=== PATIENT | female | born 2000 | race Caucasian/White ===

== ENCOUNTER 2019-03-26 20:13 | Outpatient (REF) | payer BC, SELFPAY ==
[2019-03-26 19:34] LABS: ALT 22 U/L (14-59); AST 15 U/L (15-37); Albumin 4.2 g/dL (3.4-5.0); Alkaline Phosphatase 62 U/L (46-116); BUN 11 mg/dL (7-18); Bilirubin, Total 0.4 mg/dL (0.2-1.0); CREATININE 0.59 mg/dL (0.55-1.02); Calcium 9.5 mg/dL (8.5-10.1); Chloride 103 mmol/L (98-107); Glucose 85 mg/dL (70-100); Potassium 4.2 mmol/L (3.5-5.1); Sodium 141 mmol/L (136-145); TSH (W/Ref FT4) 1.27 uIU/mL (0.52-4.13); Total Protein 7.7 g/dL (6.4-8.2)
== END 2019-03-26 20:33 ==
LOC: NCHCN 20:13
PROVIDERS: PCP Nurse Practitioner Adult Health; Visit Provider Nurse Practitioner Adult Health
DX: F41.9 Anxiety disorder, unspecified (principal); R35.0 Frequency of micturition
CPT/HCPCS: 80053; 84443

== ENCOUNTER 2019-03-27 19:12 | Outpatient (REF) | payer BC, SELFPAY | END 2019-03-27 19:32 | LOC: LBN 19:12 | PROVIDERS: PCP Nurse Practitioner Adult Health; Visit Provider Nurse Practitioner Adult Health | DX: R35.0 Frequency of micturition (principal); R39.15 Urgency of urination; R82.81 Pyuria | CPT/HCPCS: 87086 ==

== ENCOUNTER 2021-05-01 02:19 | Outpatient (CLI) | payer MEDICAID, SELFPAY ==
--- OUTSIDE RECORDS SUMMARY | 2021-05-01 02:21 | XMS_ITS ---
:2000 Author Care Team Providers Name Role Phone DORITA BENOIT Primary Care Provider [phone] Allergies Code Code System Name Reaction Severity Status Onset NKDA ? Medications Name Status Start Date Stop Date ? ? amitriptyline 10 mg tablet Completed ? 11/16 takes one tablet by mouth daily at bedtime. Camrese 0.15 mg-30 mcg (84)/10 mcg(7) Completed ? 01/27/2018 tablets,3 month dose pack clotrimazole-betamethasone 1 %-0.05 % Completed ? 01/27/2018 topical cream cyclobenzaprine 5 mg tablet Completed ? 07/2019 famotidine 20 mg tablet Completed ? 01/12/20 20 Take 1 tablet twice a day by oral route as needed for 90 days. fluconazole 150 mg tablet Completed ? 2017 levonorgestrel-ethinyl estradiol 90 mcg-20 mcg (28) tablet Compl eted ? 04/10/2018 Take 1 tablet every day by oral route. medroxyprogesterone 150 mg/mL Completed ? intramuscular suspension Miralax 17 gram/dose oral powder Completed ? 06/04/2019 Take 17 g every day by oral route. oxybutynin chloride 5 mg tablet Completed ? 11/17/2019 as needed oxycodone 5 mg tablet Completed ? 01/27/2018 phenazopyridine 200 mg tablet Completed ? Active ? Not available ProAir HFA 90 mcg/actuation aerosol inhaler Completed ? 01/12/2020 Inhale 2 puffs every 4-6 hours by inhalation route. sertraline 50 mg tablet Completed ? 01/12/20 20 Take 1 tablet every day by oral route for 30 days. sulfamethoxazole 800 mg-trimethoprim Completed ? 01/27/2018 160 mg tablet triamcinolone acetonide 0.1 % topical cream Completed ? 01/23/2019 APPLY A THIN LAYER TO THE AFFECTED AREA(S) BY TOPICAL ROUTE 2 T IMES PER DAY Problems Name Status Onset Date Source ? Venereal Disease Screening Unknown 03/12/2018 ? Chronic Neck Pain Unknown 06/04/2019 ? Thoracic Back Pain Unknown 06/04/2019 ? Adult Health Examination Unknown 05/04/2020 ? Sebaceous Cyst of Skin Active 04/07/2021 ? History of Chlamydial Infection Unknown ? ? History of Asthma Active ? ? Well Child Unknown ? History Initial Prescription of Oral Unknown ? His tory Contraception Venereal Disease Screening Unknown ? Histo ry Leticia Infection of Genital Region Unknown ? History SNOMED CT Concept Unknown ? History Procedure by Method Unknown ? History Procedures Date Name Performed by ? 03/03/2017 [place] Teeth Extraction Information not available 04/10/2018 US, Pelvis, Transabdominal + [facility] Radiology (Internal) Transvaginal [address] [place] [address] ( (Work Place) 06/04/2019 XR, Cervical Spine, 4 or 5 View [facility] Radiology (Internal) [address] [place] [address] ( (Work Place) 06/04/2019 XR, Thoracic Spine, [address] [facility] Radiology (Internal) [address] [place] [address] ( (Work Place) 03/27/2021 US, Extremity, Nonvascular, [facility] Rad[facility] (Internal[facility] [address] [place] [address] (Work Place) Results Lab Results Date Name Specimen Result Interpretation Description Value Range Status Address ? 03/27/2021 CBC W/ Auto BLD ? Wbc 8.2 10*3/uL 5.0-10.0 F inal [place] Diff 10*3/uL [facility] ab (Internal) : [address] ? ? BLD ? Rbc 4.68 10*6/uL 4.10-5.30 Final N orth 10*6/uL [facility] (Internal) : [address] ? ? BLD ? Hgb 13.9 g/dL 12.0-16.0 Final Nort h g/dL [facility] (Internal) : [address] ? ? BLD ? Hct 42.6 % 37.0-47.[address] [facility] L ab (Internal) : [address] ? ? BLD ? Mcv 91.0 fL 80.0-96.0 Final [facility] Hospital L ab (Internal) : [address] ? ? BLD ? Mch 29.7 pg 26.0-32.0 Final [facility] Hospital L ab (Internal) : [address] ? ? BLD ? Mchc 32.6 g/dL 31.0-35.0 Final [facility] h g/dL [facility] L ab (Internal) : [address] ? ? BLD ? Rdw 12.0 % 11.5-14.5 Final [facility] L ab (Internal) : [address] ? ? BLD ? Plt 232 10*3/uL 130-450 Final Nort h 10*3/uL [facility] L ab (Internal) : [address] ? ? BLD ? Anc 5.19 10*3/uL ? Final [facility] L ab (Internal) : [address] ? ? BLD ? Nlr 2.14 0.00-3.[address] [facility] L ab (Internal) : [address] ? ? BLD ? Neutro 63.2 % 40.0-75.0 Final [facility] L ab (Internal) : [address] ? ? BLD ? Lymph 29.5 % 20.0-50.0 Final [facility] L ab (Internal) : [address] ? ? BLD ? Delta 6.0 % 2.0-10.0 Final [facility] L ab (Internal) : [address] ? ? BLD Low Eos 0.5 % 1.0-6.0 % Final [facility] L ab (Internal) : [address] ? ? BLD ? Baso 0.6 % 0.0-1.0 % Final [facility] L ab (Internal) : [address] ? ? BLD ? Ig 0.2 % 0.0-0.9 % Final [facility] L ab (Internal) : [address] t 03/27/2021 Ldh, Serum S ? Ldh 140 U/L 81-234 Final N orth or Plasma U/L [facility] L ab (Internal) : [address] t 03/27/2021 CMP, Serum S ? g/r 88 mg/dL 74-106 Final North or Plasma mg/dL [facility] (Internal[facility] : [address] t ? ? S ? Bun 7 mg/dL 7-18 Final North mg/dL [facility] L ab (Internal) : [address] t ? ? S ? Crea 0.6 mg/dL 0.6-1.0 Final North mg/dL [facility] ab (Internal) : [address] t ? ? S ? Ca 9.1 mg/dL 8.5-10.1 Final [facility] mg/dL [facility] (Internal) : [address] t ? ? S ? Na 142 mmol/L 136-145 Final North mmol/L [facility] L ab (Internal) : [address] ? ? S ? K 4.2 mmol/L 3.5-5.1 Final North mmol/L [facility] (Internal) : [address] t ? ? S ? Cl 106 mmol/l 98-107 Final North mmol/l [facility] (Internal) : [address] ? ? S ? Tco2 29.6 mmol/L 21.0-32.0 Final No rth mmol/L [facility] (Internal) : [address] t ? ? S ? Tp 7.9 g/dL 6.4-8.2 Final [facility] g/dL [facility] (Internal) : [address] t ? ? S ? Alb 4.2 g/dL 3.4-5.0 Final North g/dL [facility] L ab (Internal) : [address] ? ? S ? Tbil 0.40 mg/dL 0.20-1.00 Final Nor th mg/dL [facility] (Internal) : [address] t ? ? S ? Alp 53 U/L 50-136 Final [place] U/L [facility] L ab (Internal) : [address] ? ? S ? Alt 17 U/L 14-59 U/L Final [place] (Sgpt) [facility] (Internal) : [address] t ? ? S Low Ast 13 U/L 15-37 U/L Final [place] (Sgot) [facility] (Internal) : [address] t 05/04/2020 CBC W/ Auto BLD ? Wbc 7.1 10*3/uL 5.0-10.0 F inal [place] Diff 10*3/uL [facility] (Internal) : [address] ? ? BLD ? Rbc 4.76 10*6/uL 4.10-5.30 Final N orth 10*6/uL [facility] (Internal) : [address] ? ? BLD ? Hgb 14.4 g/dL 12.0-16.0 Final Nort h g/dL [facility] L ab (Internal) : [address] ? ? BLD ? Hct 44.0 % 37.0-47.[address] [facility] L ab (Internal) : [address] ? ? BLD ? Mcv 92.4 fL 80.0-96.0 Final [facility] L ab (Internal) : [address] ? ? BLD ? Mch 30.3 pg 26.0-32.0 Final [facility] L ab (Internal) : [address] ? ? BLD ? Mchc 32.7 g/dL 31.0-35.0 Final Nort h g/dL [facility] L ab (Internal) : [address] ? ? BLD ? Rdw 11.7 % 11.5-14.[address] [facility] L ab (Internal) : [address] ? ? BLD ? Plt 267 10*3/uL 130-450 Final Nort h 10*3/uL [facility] L ab (Internal) : [address] ? ? BLD ? Anc 3.72 10*3/uL ? Final Nort h [facility] L ab (Internal) : [address] ? ? BLD ? Nlr 1.36 0.00-3.20 Final [facility] L ab (Internal) : [address] ? ? BLD ? Neutro 52.2 % 40.0-75.[address] [facility] L ab (Internal) : [address] ? ? BLD ? Lymph 38.5 % 20.0-50.[address] [facility] L ab (Internal) : [address] ? ? BLD ? Delta 7.6 % 2.0-10.[address] [facility] L ab (Internal) : [address] ? ? BLD Low Eos 0.7 % 1.0-6.0 % Final [facility] ab (Internal) : [address] ? ? BLD ? Baso 0.7 % 0.0-1.0 % Final [facility] L ab (Internal) : [address] ? ? BLD ? Ig 0.3 % 0.0-0.9 % Final [facility] L ab (Internal) : [address] t 05/04/2020 CMP, Serum S ? g/r 97 mg/dL 74-106 Final North or Plasma mg/dL [facility] (Internal) : [address] ? ? S ? Bun 7 mg/dL 7-17 Final North mg/dL [facility] (Internal) : [address] ? ? S ? Crea 0.60 mg/dL 0.52-1.04 Final Nor th mg/dL [facility] (Internal) : [address] ? ? S ? Ca 9.5 mg/dL 8.4-10.2 Final North mg/dL [facility] (Internal) : [address] ? ? S ? Na 141 mmol/L 137-145 Final North mmol/L [facility] ab (Internal) : [address] ? ? S ? K 4.0 mmol/L 3.5-5.1 Final North mmol/L [facility] ab (Internal) : [address] ? ? S ? Cl 102 mmol/L 98-107 Final [place] mmol/L [facility] (Internal) : [address] ? ? S High Tco2 31.0 mmol/L 22.0-30.0 Final No rth mmol/L [facility] ab (Internal) : [address] ? ? S ? Tp 8.0 g/dL 6.3-8.2 Final [place] g/dL [facility] (Internal) : [address] ? ? S High Alb 5.1 g/dL 3.5-5.0 Final [place] g/dL [facility] (Internal) : [address] ? ? S ? Tbil 0.6 mg/dL 0.2-1.3 Final [place] mg/dL [facility] (Internal) : [address] ? ? S ? Alp 53 U/L 50-136 Final [place] U/L [facility] (Internal) : [address] ? ? S ? Alt 12 U/L 9-52 U/L Final [place] (Sgpt) [facility] (Internal) : [address] ? ? S ? Ast 30 U/L 14-36 U/L Final [place] (Sgot) [facility] (Internal) : [address] 05/04/2020 Thyroid S ? Tsh 1.33 u[IU]/mL 0.47-4.68 Fi [facility], u[IU]/mL Countr [facility] L ab (Internal) : [address] 01/12/2020 ? Hcg negative ? ? P _ob/Mold Setter: 81 Test, Urine Medic [facility] 08/13/2019 Urinalysis, UR ? UA-color pale yellow pale Final [place] Dipstick, yellow [facility] Hospital L ab Micro (Internal) : [address] ? ? UR ? UA-appea clear clear Final [place] r [facility] (Internal) : [address] ? ? UR ? UA-spec 1.015 1.003-1.0 Final [place] Grav 35 [facility] L ab (Internal) : [address] ? ? UR ? UA-pH 6.0 [pH] 4.6-8.0 Final North [pH] [facility] ab (Internal) : [address] [place] ? ? UR ? UA-leuk negative negative Final Nort h Est [facility] L ab (Internal) : [address] ? ? UR ? UA-nitri negative negative Final Nor th te [facility] L ab (Internal) : [address] [place] ? ? UR ? UA-prot negative negative Final Nort h [facility] L ab (Internal) : [address] ? ? UR ? UA-gluc negative negative Final [facility] : [address] [place] ? ? UR ? UA-keton negative negative Final Nor th e [facility] L ab (Internal) : [address] ? ? UR ? UA-urobi normal normal Final [facility] L ab (Internal) : [address] ? ? UR ? UA-bili negative negative Final Nort h [facility] L ab (Internal) : [address] ? ? UR ? UA-blood negative negative Final Nor th [facility] L ab (Internal) : [address] t 08/13/2019 TSH, Serum S ? Tsh 1.36 u[IU]/mL 0.47-4.68 Final North or Plasma u[IU]/mL [facility] Hospital L ab (Internal) : [address] t 08/13/2019 Tissue S ? Tissue <1.2 U/mL <4.0 Final No rth Transglutam Transglut (negative [facility] inase IgA aminase ) U/mL Hospit al Lab Ab, Ab, IgA, (Interna l): Quantitativ S [address], Serum Di [place] ort 08/13/2019 Iga, S ? Iga 365 mg/dL 85-499 Final Nor th Quantitativ mg/dL Count ry e, Serum Hospital Lab (Internal) : [address] t 07/16/2019 Rapid Flu NASAL ? Final microbiology ? Mary Lou l North (A+B) results [facility] L ab (Internal) : [address] 07/16/2019 Rapid Strep ? Strep negative ? ? P_nc Primary Group a, Care Throat [place]: 1 86 [facility] 04/10/2019 C Diff STL - C. Diff negative negative Final [place] Toxin ([facility]) [facility] Genes, Hospital L ab Qual, PCR, (Inter nal): Stool [address] 04/10/2019 Enteric STL - Salmonel negative ? Final [place] Bacteria, la PCR [facility] Organism Hospital Lab Specific (Interna l): Culture, [address] ? ? STL - Shigella negative ? Final [place] PCR [facility] L ab (Internal) : [address] ? ? STL - Campylob negative ? Final [place] acter PCR [facility] L ab (Internal) : [address] ? ? STL - Shiga negative ? Final [place] Toxin PCR [facility] L ab (Internal) : [address] 04/09/2019 CBC W/ Auto BLD High Wbc 12.1 10*3/uL 5.0-10.0 Final North Diff 10*3/uL [facility] L ab (Internal) : [address] t ? ? BLD - Rbc 4.74 10*6/uL 4.10-5.30 Final N orth 10*6/uL [facility] L ab (Internal) : [address] ? ? BLD - Hgb 14.6 g/dL 12.0-16.0 Final Nort h g/dL [facility] ab (Internal) : [address] t ? ? BLD - Hct 41.4 % 37.0-47.0 Final [place] % [facility] ab (Internal) : [address] ? ? BLD - Mcv 87.3 fL 80.0-96.0 Final [place] fL [facility] ab (Internal) : [address] ? ? BLD - Mch 30.8 pg 26.0-32.0 Final [place] pg [facility] L ab (Internal) : [address] t ? ? BLD High Mchc 35.3 g/dL 31.0-35.0 Final Nort h g/dL [facility] L ab (Internal) : [address], [place] ? ? BLD Low Rdw 11.4 % 11.5-14.[address] [facility] L ab (Internal) : [address] ? ? BLD - Plt 203 10*3/uL 130-450 Final Nort h 10*3/uL [facility] L ab (Internal) : [address] [place] ? ? BLD - Anc 8.19 10*3/uL ? Final Nort h [facility] L ab (Internal) : [address] [place] ? ? BLD - Neutro 67.9 % 40.0-75.[address] [facility] L ab (Internal) : [address] ? ? BLD - Lymph 23.3 % 20.0-50.[address] [facility] L ab (Internal) : [address] ? ? BLD - Delta 7.7 % 2.0-10.[address] [facility] L ab (Internal) : [address] [place] ? ? BLD Low Eos 0.6 % 1.0-6.0 % Final [facility] L ab (Internal) : [address] [place] ? ? BLD - Baso 0.3 % 0.0-1.0 % Final [facility] L ab (Internal) : [address] [place] ? ? BLD - Ig 0.2 % 0.0-0.9 % Final [facility] L ab (Internal) : [address] t 04/09/2019 Lipase, S - Lip 87 U/L 23-300 Final [place] Serum or U/L [facility] Plasma Hospital L ab (Internal) : [address] 04/09/2019 CMP, Serum S - g/r 100 mg/dL 74-106 Final North or Plasma mg/dL [facility] L ab (Internal) : [address] ? ? S - Bun 11 mg/dL 7-17 Final North mg/dL [facility] L ab (Internal) : [address] ? ? S Low Crea 0.50 mg/dL 0.52-1.04 Final Nor th mg/dL [facility] (Internal) : [address] ? ? S - Ca 9.6 mg/dL 8.4-10.2 Final [facility] mg/dL [facility] (Internal) : [address] ? ? S - Na 141 mmol/L 137-145 Final [facility] mmol/L [facility] (Internal) : [address] ? ? S - K 3.6 mmol/L 3.5-5.1 Final [facility] mmol/L [facility] (Internal) : [address] ? ? S - Cl 105 mmol/L 98-107 Final [facility] mmol/L [facility] (Internal) : [address] ? ? S - Tco2 25.0 mmol/L 22.0-30.0 Final No rth mmol/L [facility] (Internal) : [address] ? ? S - Tp 7.7 g/dL 6.3-8.2 Final [facility] g/dL [facility] (Internal) : [address] ? ? S - Alb 4.2 g/dL 3.5-5.0 Final [facility] g/dL [facility] (Internal) : [address] ? ? S - Tbil 0.5 mg/dL 0.2-1.3 Final [facility] mg/dL [facility] (Internal) : [address] ? ? S - Alp 67 U/L 50-136 Final [facility] U/L [facility] (Internal) : [address] ? ? S - Alt 18 U/L 9-52 U/L Final [place] (Sgpt) [facility] (Internal) : [address] ? ? S - Ast 25 U/L 14-36 U/L Final [place] (Sgot) [facility] L ab (Internal) : [address] 04/09/2019 Urinalysis, UR - UA-color yellow pale Final North Dipstick, yellow [facility] Hospital L ab Micro (Internal) : [address] ? ? UR - UA-appea clear clear Final North r [facility] ab (Internal) : [address] ? ? UR - UA-spec 1.025 1.003-1.0 Final [place] Grav 35 [facility] (Internal) : [address] ? ? UR - UA-pH 5.5 [pH] 4.6-8.0 Final [place] [pH] [facility] (Internal) : [address] ? ? UR - UA-leuk negative negative Final Nort [facility] ab (Internal) : [address] ? ? UR - UA-nitri negative negative Final Nor [facility] ab (Internal) : [address] ? ? UR - UA-prot negative negative Final Nort [facility] ab (Internal) : [address] ? ? UR - UA-gluc negative negative [facility] ab (Internal) : [address] ? ? UR ABNORMA UA-keton 1+ negative Final Nort [facility] ab (Internal) : [address] ? ? UR - UA-urobi normal normal Final [facility] ab (Internal) : [address] ? ? UR - UA-bili negative negative Final [facility] ab (Internal) : [address] ? ? UR - UA-blood negative negative Final [facility] ab (Internal) : [address] 04/09/2019 UR - Hcgu negative negative Final [place] Test, Urine Count [facility] ab (Internal) : [address] 04/10/2018 Urinalysis, UR - UA-color pale yellow pale Final [place] Dipstick, yellow [facility] ab Micro (Internal) : [address] ? ? UR - UA-appea clear clear Final [facility] ab (Internal) : [address] ? ? UR - UA-gluc negative negative Final Nort [facility] ab (Internal) : [address] ? ? UR - UA-bili negative negative Final Nort h [facility] ab (Internal) : [address] ? ? UR - UA-keton negative negative Final Nor th e [facility] L ab (Internal) : [address] ? ? UR - UA-spec 1.020 1.003-1.0 Final North Grav 35 [facility] Hospital L ab (Internal) : [address] ? ? UR - UA-blood negative negative Final Nor th [facility] L ab (Internal) : [address] ? ? UR - UA-pH 7.0 [pH] 4.6-8.0 Final North [pH] [facility] L ab (Internal) : [address] ? ? UR - UA-prot negative negative Final Nort h [facility] L ab (Internal) : [address] ? ? UR - UA-urobi normal normal Final [facility] L ab (Internal) : [address] ? ? UR - UA-nitri negative negative Final Nor te [facility] L ab (Internal) : [address] ? ? UR - UA-leuk negative negative Final Nort h Est [facility] L ab (Internal) : [address] 01/27/2018 HBsAg S - Hep B negative negat Final Nort h (Hepatitis Surface Count ry B Surface Ag Hospita l Lab Ag), Serum (Inter nal): [address] 01/27/2018 HIV (1+2) S - HIV 1/2 negative negat Final [place] Ab Screen, Antigen Count ry Serum and Hospital L ab Antibody (Interna l): [address] 01/27/2018 Hepatitis C S - Hep C Ab negative negat Fin al [place] Virus Ab, W Rfx PCR Coun try Serum Hospital L ab (Internal) : [address] 01/27/2018 CT RNA, MISC - Specimen cervix ? Final No rth Qual, PCR, Descripti Cou ntry Unspecified on Hospi vinny Lab Specimen (Interna l): [address] ? ? MISC - Chlamydi negative ? Final North a Result [facility] L ab (Internal) : [address] ? ? MISC - GC negative ? Final [place] Result [facility] L ab (Internal) : [address] 01/27/2018 RPR (Rapid BLD - Rpr non-reactive non-react Final [place] Plasma sariah [facility]), Hospital Lab Serum (Internal) : [address] 01/27/2018 Urinalysis, ? Color Yellow ? ? P _ob/Mold Setter: 81 Dipstick, [facility] ? ? ? Appearan Clear ? ? P_ob/Gy n: 81 ce [facility] ? ? ? Glucose Normal ? ? P_ob/Mold Setter : 81 [facility] ? ? ? Ketones Negative ? ? P_ob/G yn: 81 [facility] ? ? ? Specific 1.010 ? ? P_ob/Gy n: 81 [place] [facility] ? ? ? Blood Negative ? ? P_ob/Mold Setter : [address] [place] [address] [facility] ? ? ? Ph 7.5 ? ? P_ob/Mold Setter: 81 [facility] ? ? ? Protein Trace ? ? P_ob/Mold Setter : 81 [facility] ? ? ? Nitrite negative ? ? P_ob/G yn: 81 [facility] ? ? ? Leukocyt Negative ? ? P_ob/ Mold Setter: 81 e [facility] 01/14/2018 Urinalysis, UR ABNORMA UA-color bloody pale Mary Lou l [place] Dipstick, L yellow [facility] L ab Micro (Internal) : [address] ? ? UR ABNORMA UA-appea hazy clear Final [place] L r [facility] Hospital L ab (Internal) : [address] ? ? UR - UA-spec <=1.005 1.003-1.0 Final Nort h Grav 35 [facility] Hospital L ab (Internal) : [address] ? ? UR - UA-pH 6.5 [pH] 4.6-8.0 Final [place] [pH] [facility] L ab (Internal) : [address] ? ? UR ABNORMA UA-leuk moderate negative Final Nor th L Est [facility] L ab (Internal) : [address] [place] ? ? UR - UA-nitri negative negative Final Nor th te [facility] (Internal) : [address] ? ? UR ABNORMA UA-prot 2+ negative Final [facility] (Internal) : [address] ? ? UR - UA-gluc negative negative Final [facility] ab (Internal) : [address] t ? ? UR - UA-keton negative negative Final Nor e [facility] (Internal) : [address] ? ? UR - UA-urobi normal normal Final [facility] [facility] (Internal) : [address] t ? ? UR - UA-bili negative negative Final [facility] (Internal) : [address] t ? ? UR ABNORMA UA-blood large negative Final [facility] (Internal) : [address] 01/14/2018 Urinalysis, UR ABNORMA UA-WBC 10-25 [hpf] 0-3 [hpf ] Final [facility]scopic L Count [facility] (Internal) : [address] t ? ? UR ABNORMA UA-RBC >100 [hpf] 0-2 [hpf] Final N orth [facility] (Internal) : [address] ? ? UR - UA-bacte rare [hpf] none seen Final [facility] lorenza [hpf] [facility] (Internal) : [address] ? ? UR - UA-epith rare [hpf] none seen Final [facility] elial [hpf] [facility] (Internal) : [address] ? ? UR - UA-mucus none seen none seen Final N orth [hpf] [hpf] [facility] (Internal) : [address] 01/14/2018 sensitiviti MISC - Sens* ? ? Final N orth es[I] [facility] (Internal) : [address] 01/14/2018 Culture UR - Final microbiology ? Final [facility] ([place] results Country Count), [facility] Lab Urine (Internal) : [address] 09/12/2017 CT RNA, MISC ? Specimen cervix ? Final No rth Qual, PCR, Descripti Cou ntry Unspecified on Hospi vinny Lab Specimen (Interna l): [address] ? ? MISC ? Chlamydi negative ? Final North a Result [facility] (Internal) : [address] t ? ? MISC ? GC negative ? Final [facility] Result [facility] (Internal) : [address] 07/23/2017 RPR (Rapid BLD ? Rpr non-reactive non-react Final [facility] Plasma s[facility]), Hospital Lab Serum (Internal) : [address] 07/23/2017 Venipunctur BLD ? Venpn* ? ? Final [facility] (Internal) : [address] 07/23/2017 HIV (1+2) S ? HIV 1/2 negative negat [facility] Ab Screen, Antigen Count ry Serum and Hospital L ab Antibody (Interna l): [address] t 07/23/2017 Hepatitis C S ? Hep C Ab negative negat Fin [facility] Virus Ab, W Rfx PCR Coun try Serum Hospital L ab (Internal) : [address] t 07/23/2017 CT RNA, MISC ? Specimen vaginal ? Final N orth Qual, PCR, Descripti Cou ntry Unspecified on Hospi vinny Lab Specimen (Interna l): [address] ? ? MISC ? Chlamydi negative ? Final [place] a Result [facility] (Internal) : [address] ? ? MISC ? GC negative ? Final [facility] Result [facility] (Internal) : [address] 06/12/2017 Streptococc THRT ? Final microbiology ? Fi nal [facility] a, results Coun try Culture, Hospital Lab Throat (Internal) : [address] 03/21/2017 CT RNA, MISC ? Specimen vaginal ? Final N orth Qual, PCR, Descripti Cou ntry Unspecified on Hospi vinny Lab Specimen (Interna l): [address] ? ? MISC ? Chlamydi negative ? Final North a Result [facility] (Internal) : [address] ? ? MISC ? GC negative ? Final [place] [facility] : [address] 01/15/2017 Culture, UR ? Final microbiology ? Final North Urine results [facility] (Internal) : [address] [place] [address] 01/15/2017 Urinalysis, UR ? UA-color yellow pale Final [place] Complete yellow [facility] [place] : [address] ? ? UR ? UA-appea clear clear Final [place] [facility] [place]) : [address] ? ? UR ? UA-spec 1.025 1.003-1.0 Final [place] Grav 35 [facility] [place] : [address] ? ? UR ? UA-pH 6.0 [pH] 4.6-8.0 Final [facility] [pH] [facility] : [address] ? ? UR ? UA-leuk negative negative Final [facility] (Internal) : [address] ? ? UR ? UA-nitri negative negative Final [facility] (Internal) : [address] ? ? UR ? UA-prot negative negative [facility] : [address] ? ? UR ? UA-gluc negative negative [facility] : [address] ? ? UR ? UA-keton negative negative Final [facility] ab (Internal) : [address] ? ? UR ? UA-urobi normal normal Final [facility] ab (Internal) : [address] [place] [address] ? ? UR ? [facility]-bili negative negative [facility] [address] ? ? UR ? UA-blood negative negative Final [facility] (Internal) : [address] ? ? UR ? UA-WBC 0-3 [hpf] 0-3 [hpf] Final [facility] ab (Internal) : [address] ? ? UR ? UA-RBC 0-2 [hpf] 0-2 [hpf] Final [place] [facility]) : [address] ? ? UR ? UA-bacte rare [hpf] none seen Final [facility] [hpf] [facility] (Internal) : [address] ? ? UR ABNORMA UA-epith few [hpf] none seen Final [facility] elial [hpf] [facility] (Internal) : [address] ? ? UR ABNORMA UA-mucus rare [hpf] none seen Final [facility] [hpf] [facility] (Internal) : [address] 12/24/2016 CT RNA, MISC ? Specimen vaginal ? Final N orth Qual, PCR, Descripti Cou ntry Unspecified on Hospi vinny Lab Specimen (Interna l): [address] ? ? MISC ? Chlamydi negative ? Final North a Result [facility] (Internal) : [address] ? ? MISC ? GC negative ? Final [facility] (Internal) : [address] 10/02/2016 CT RNA, MISC ? Specimen vaginal ? Final N orth Qual, PCR, Descripti Cou ntry Unspecified on Hospi vinny Lab Specimen (Interna l): [address] ? ? MISC Unknown Result ? ? Final [facility] (Internal) : [address] [place] ? ? Hcg negative ? ? P_nc Primary Test, Urine Care [place]: 1 [address] [facility] Past Encounters 03/27/2021 Mass of Axilla; Unintentional Weight Los s; Anxiety; Administration of Influenza Vaccine Dorita Jimenez PA: [address] [place] [address], Ph. 05/04/2020 Active or Passive Immunization; Adult He alth Examination; Unintentional Weight Loss NAOMY TobinC: [address] [place] [address], Ph. 01/12/2020 Abnormal Uterine Bleeding Italia Huber, PK: [address] [place] [address], Ph. 11/17/2019 Generalized Anxiety Disorder; Exercise I nduced Bronchospasm; Gastroesophageal Reflux Disease without Esophagitis Dominique Fuller PEANUT SEPARATOR: [address] [place] [id number], Ph. Social History Tobacco Smoking Status Never Smoker Vaccine List Vaccine Type DTaP 01/03/2000 03/05/2000 05/07/2000 05/05/2001 11/03/2004 Hep A, adult 06/04/2019 Hep A, ped/adol, 2 dose 04/19/2016 Hep B, adolescent or pediatric 1999 1999 08/05/2000 Hib (PRP-T) 01/03/2000 03/05/2000 05/07/2000 05/05/2001 HPV, quadrivalent 12/28/2010 03/06/2011 07/10/2011 influenza, injectable, quadrivalent 05/19/2014 04/19/2016 03/26/2019 influenza, injectable, quadrivalent, pre servative free 04/11/2018?0.5 mL influenza, seasonal, injectable 04/02/2003 05/04/2003 03/03/2004 04/03/2005 04/09/2006 04/21/2008 03/16/2009 03/06/2011 03/18/2013 04/13/2015 03/18/2020 influenza, seasonal, injectable, preserv ative free 05/15/2017 IPV 01/03/2000 03/05/2000 05/05/2001 11/03/2004 meningococcal MCV4P 12/28/2010 04/19/2016 MMR 11/05/2000 03/03/2004 novel [id number], all formulation s 03/31/2009 pneumococcal conjugate PCV 7 05/07/2000 08/05/2000 11/05/2000 02/07/2001 Td (adult), adsorbed 05/04/2020 Tdap 12/27/2009 varicella 02/07/2001 11/04/2006 Plan of Care Patient Instructions - Take ProAir Inaler 2 puffs 20-30 minutes prior to any type of exercise. Can also take if feeling short of breath, wheezing, or intense coughing fits. - Start Famotidine (Pepcid AC) 20mg twic e a day for 14 days. After 14 days decrease to once a day. If doing well on once a day can take as needed. Safe to stay at twice a day if this helps symptoms. - Start Sertraline 25mg daily (1/2 tab) for 1 week and then increase to 50mg (1 tab) daily at bedtime. - Call in 2 weeks (11/30) with rosa webb with Katelyn and ask for me Reminders Provider Appointments None recorded. ? ? Lab None recorded. ? ? Referral None recorded. ? ? Procedures None recorded. ? ? Surgeries None recorded. ? ? Imaging None recorded. ? ? Vitals 03/27/2021 01:20PM Acute 40 Height Weight BMI Blood Pressure 168.28 cm 62.28 kg 22 kg/m2 140/82 mm[Hg] 05/04/2020 11:20AM CPE 60 Height Weight BMI Blood Pressure 168.28 cm 66.3 kg 23.4 kg/m2 138/78 mm[Hg] 01/12/2020 10:50AM Office 20 Height Weight BMI Blood Pressure 168.28 cm 73.03 kg 25.8 kg/m2 120/72 mm[Hg] 11/17/2019 01:40PM Follow Up 20 Height Weight BMI 168.28 cm 75.81 kg 26.8 kg/m2 08/13/2019 12:40PM Acute 20 Height Weight BMI Blood Pressure 168.28 cm 75.41 kg 26.6 kg/m2 140/76 mm[Hg] 07/16/2019 04:40PM Acute 20 Height Weight BMI Blood Pressure 168.28 cm 76.61 kg 27.1 kg/m2 140/72 mm[Hg] 06/04/2019 07:40AM Acute 20 Height Weight BMI Blood Pressure 168.28 cm 75.57 kg 26.7 kg/m2 142/76 mm[Hg] 01/23/2019 10:40AM Acute 40 Height Weight BMI Blood Pressure 168.28 cm 77.7 kg 27.4 kg/m2 138/88 mm[Hg] 01/16/2019 02:10PM Office 20 Height Blood Pressure 168.28 cm 120/80 mm[Hg] 04/10/2018 01:00PM CPE 40 Height Weight BMI Blood Pressure 168.28 cm 81.47 kg 28.8 kg/m2 128/80 mm[Hg] 01/27/2018 01:00PM Any 10 Height Weight BMI Blood Pressure 168.28 cm 77.11 kg 27.2 kg/m2 120/60 mm[Hg] 07/23/2017 Height Weight 168.28 cm 76.48 kg 07/23/2017 Blood Pressure 118/68 mm[Hg] 06/12/2017 Weight Blood Pressure 75.9 kg 134/66 mm[Hg] 03/21/2017 Height Weight Blood Pressure 168.28 cm 72.57 kg 118/66 mm[Hg] 01/15/2017 Height Weight Blood Pressure 168.28 cm 74.43 kg 122/74 mm[Hg] 01/03/2017 Weight Blood Pressure 72.8 kg 110/76 mm[Hg] 12/24/2016 Weight Blood Pressure 71.4 kg 118/76 mm[Hg] 10/24/2016 Weight Blood Pressure 67.3 kg 138/66 mm[Hg] 10/02/2016 Weight Blood Pressure 67 kg 122/62 mm[Hg] 05/07/2016 Weight Blood Pressure 64.9 kg 116/78 mm[Hg] 04/19/2016 Height Weight Blood Pressure (1) 166.7 cm 66.2 kg 118/70 mm[Hg] (2) 165.13 cm 02/15/2016 Blood Pressure 134/62 mm[Hg] 02/13/2016 Weight Blood Pressure 65.3 kg 132/70 mm[Hg] 11/22/2015 Weight Blood Pressure 62.1 kg 114/68 mm[Hg] 08/31/2015 Weight Blood Pressure 55 kg 114/68 mm[Hg] 06/08/2015 Weight Blood Pressure 51.9 kg 112/70 mm[Hg] 04/13/2015 Height Weight Blood Pressure (1) 166.5 cm 51.3 kg 112/68 mm[Hg] (2) 164.93 cm 03/08/2015 Weight Blood Pressure 53.6 kg 118/72 mm[Hg] 02/09/2015 Weight Blood Pressure 54 kg 106/70 mm[Hg] 12/02/2014 Weight Blood Pressure 52.1 kg 126/70 mm[Hg] 10/26/2014 Weight Blood Pressure 51.4 kg 116/54 mm[Hg] 09/02/2014 Weight Blood Pressure 50.1 kg 116/66 mm[Hg] 06/10/2014 Weight Blood Pressure 49.2 kg 128/70 mm[Hg] 01/19/2014 Height Weight Blood Pressure (1) 166.2 cm 49.6 kg 120/70 mm[Hg] (2) 164.64 cm 01/14/2013 Height Weight Blood Pressure (1) 163.4 cm 48.8 kg 116/78 mm[Hg] (2) 161.86 cm 10/20/2012 Weight Blood Pressure 46.6 kg 118/64 mm[Hg] 02/22/2012 Weight 47.9 kg 01/08/2012 Height Weight Blood Pressure (1) 161.3 cm 48.5 kg 120/70 mm[Hg] (2) 159.78 cm 12/10/2011 Weight 48.1 kg 07/10/2011 Weight 48.55 kg 03/06/2011 Weight 49.3 kg 12/28/2010 Height Weight Blood Pressure (1) 154.5 cm 46 kg 128/74 mm[Hg] (2) 153.05 cm 10/16/2010 Weight 43.9 kg
--- OUTSIDE RECORDS SUMMARY | 2021-05-01 02:21 | XMS_ITS | Encounter Summary ---
:2000 Author Care Team Providers Name Role Phone Dorita BENOIT Primary Care Provider [phone] Reason for Visit None recorded. Assessment and Plan 1. Mass of axilla Muna is a previously health y 20 yo female who presents with 3 months of mass in right axilla with unintentional weight loss without fevers, chills or night sweats. On exam, there is a firm 2.3 cm x 2.5 cm immobile mass in the right axilla. Breast exam and evaluation of other lymphatic chains are normal. Ddx includes lymphoma vs sebaceous cyst vs abscess vs lipoma. Lack of erythema and induration make abscess less likely. Character of mass not consistent with typical lipoma. Magnitude of size makes reactive lymphadenopathy unlikely. Will evaluate with labs and obtain ultra sound. If general surgery is required, patient prefers to see a provider outside this facility. Will follow-up with patient pending resu lts. ? US, extremity, nonvascular , limited - 2.3 x 2.5 cm firm mass in right axilla 2. Unintentional weight loss Unintentional weight loss of 1 5 lbs when last seen 05/2020 which was evaluated with labs without any significant findings. Patient presents today with additional 9 lb unintentional weight loss that she believes is related to her anxiety. In light of the mass in her axilla, labs are warranted. ? CBC w/ auto diff ? ldh, serum or plasma ? CMP, serum or plasma 3. Anxiety Patient is engaged in counseli ng 1x/week which is helpful for her anxiety. She prefers to avoid pharmacologic inter vention. Will continue to monitor weight loss. 4. Administration of influenza v accine Discussion Note: None recorded.Patient educational handouts: No information available. Plan of Care Reminders Provider Appointments Cpe 40 Dorita Jimenez, 05/10/2021 KAYCEE 2:40PM Lab CBC W/ Auto [place] Diff 03/27/2021 Hospital Lab (In ternal) ? Ldh, Serum [place] or Plasma 03/27/2021 [facility] ? CMP, Serum [place] or Plasma 03/27/2021 Hospital Lab [facility] Referral None ? ? recorded. Procedures None ? ? recorded. Surgeries None ? ? recorded. Imaging US, [place] Extremity, 03/27/2021 Hospital Radiolo gy Nonvascular, Limited (Internal) Medications Name Start Date ? ? ? Medications Administered None recorded. Vitals Height Weight BMI Blood Pressure 5 ft 6.25 in 137 lbs 4.8 oz 22 kg/m2 140/82 mm[Hg] Results Lab Results Date Name Specimen Result Interpretation Description Value Range Status Address ? 03/27/2021 CBC W/ BLD ? Wbc 8.2 5.0-10.0 Final [facility] Auto Diff 10*3/uL 10*3/uL Hospi vinny Lab (Internal) : [address] ? ? BLD ? Rbc 4.68 4.10-5.30 Final [facility] ountry 10*6/uL 10*6/uL Hospital Lab (Internal) : [address] t ? ? BLD ? Hgb 13.9 g/dL 12.0-16.0 Final [facility] g/dL Hospital L ab (Internal) : [address] t ? ? BLD ? Hct 42.6 % 37.0-47.0 Final [facility] ount % Hospital L ab (Internal) : [address] t ? ? BLD ? Mcv 91.0 fL 80.0-96.0 Final [facility] fL Hospital L ab (Internal) : [address] ? ? BLD ? Mch 29.7 pg 26.0-32.0 Final [facility] pg Hospital L ab (Internal) : [address] t ? ? BLD ? Mchc 32.6 g/dL 31.0-35.0 Final [facility] g/dL Hospital L ab (Internal) : [address] t ? ? BLD ? Rdw 12.0 % 11.5-14.5 Final [facility]unt[facility] % Hospital L ab (Internal) : [address] t ? ? BLD ? Plt 232 130-450 Final [facility] ntry 10*3/uL 10*3/uL Hospital Lab (Internal) : [address] [place] t ? ? BLD ? Anc 5.19 ? Final [facility] try 10*3/uL Hospital Lab (Internal) : [address] ? ? BLD ? Nlr 2.14 0.00-3.20 Final [place] [facility] L ab (Internal) : [address] ? ? BLD ? Neutro 63.2 % 40.0-75.0 Final [facility] Hospital L ab (Internal) : [address] ? ? BLD ? Lymph 29.5 % 20.0-50.0 Final [facility] Hospital L ab (Internal) : [address] t ? ? BLD ? [place] 6.0 % 2.0-10.0 % Final [facility] L ab (Internal) : [address] t ? ? BLD Low Eos 0.5 % 1.0-6.0 % Final [place] [facility] L ab (Internal) : [address] ? ? BLD ? Baso 0.6 % 0.0-1.0 % Final [place] [facility] L ab (Internal) : [address] ? ? BLD ? Ig 0.2 % 0.0-0.9 % Final [place] [facility] L ab (Internal) : [address] 03/27/2021 Ldh, S ? Ldh 140 U/L 81-234 U/L Final [facility] Serum or Hospital Lab Plasma (Internal) : [address] 03/27/2021 CMP, S ? g/r 88 mg/dL 74-106 Final [facility] Serum or mg/dL Hospital Lab Plasma (Internal) : [address] ? ? S ? Bun 7 mg/dL 7-18 mg/dL Final [facility] Hospital L ab (Internal) : [address] ? ? S ? Crea 0.6 mg/dL 0.6-1.0 Final [facility] mg/dL Hospital L ab (Internal) : [address] t ? ? S ? Ca 9.1 mg/dL 8.5-10.1 Final [place] [facility] mg/dL Hospital L ab (Internal) : [address] t ? ? S ? Na 142 136-145 Final [facility] [facility] mmol/L mmol/L Hospital L ab (Internal) : [address] ? ? S ? K 4.2 3.5-5.1 Final [facility] [facility] mmol/L mmol/L Hospital L ab (Internal) : [address] ? ? S ? Cl 106 98-107 Final [facility] try mmol/l mmol/l Hospital L ab (Internal) : [address] ? ? S ? Tco2 29.6 21.0-32.0 Final [place] [facility] mmol/L mmol/L Hospital L ab (Internal) : [address] ? ? S ? Tp 7.9 g/dL 6.4-8.2 Final [facility] g/dL Hospital L ab (Internal) : [address] ? ? S ? Alb 4.2 g/dL 3.4-5.0 Final [facility] g/dL Hospital L ab (Internal) : [address] ? ? S ? Tbil 0.40 0.20-1.00 Final [facility] mg/dL mg/dL Hospital L ab (Internal) : [address] ? ? S ? Alp 53 U/L 50-136 U/L Final [facility] Hospital L ab (Internal) : [address] ? ? S ? Alt 17 U/L 14-59 U/L Final [facility] ountry (Sgpt) Hospital L ab (Internal) : [address] ? ? S Low Ast 13 U/L 15-37 U/L Final [facility] o[facility]ry (Sgot) Hospital L ab (Internal) : [address] Allergies Code Code System Name Reaction Severity Onset NKDA ? ? ? Problems Name Status Onset Date Source ? Sebaceous Cyst of Skin Active 04/07/2021 ? History of Asthma Active ? ? Procedures Date Name Performed by ? 03/03/2017 [place] Teeth Extraction Information not available 03/27/2021 US, Extremity, Nonvascular, Limited [facility] Radiology (Internal) [address] [place], [place] [id number] (Work Place) Vaccine List Vaccine Type DTaP 01/03/2000 03/05/2000 [...] MCV4P 12/28/2010 04/19/2016 MMR 11/05/2000 03/03/2004 novel [id number], all formulation s 03/31/2009 pneumococcal conjugate PCV 7 05/07/2000 08/05/2000 11/05/2000 02/07/2001 Td (adult), adsorbed 05/04/2020 Tdap 12/27/2009 varicella 02/07/2001 11/04/2006 Social History Tobacco Smoking Status Never Smoker What is the highest grade or [id number] level of school you have completed or the highest degree you have received? Are you currently employed? Y Have you used IV drugs? N Are you blind or do you have Y Notes: u ses corrective difficulty seeing? lenses Do you have smoke and carbon Y monoxide detectors in your home? What is your code status? 0 How much tobacco do you chew? none Do you or have you ever used Never used electronic e-cigarettes or vape? cigarettes Do you have an advanced Y Notes: Advanc e Directive directive? 03/27/2021 What is your exercise level? Occasional Notes: W alks 3 times per week Live alone or with others? with others Notes: kuldip es with boyfriend What is your level of alcohol Occasional consumption? Which of your hands is Right dominant? Animal exposure? Y Notes: dog Do you have any pets? Y Education 12 Do you or have you ever used Never used smokeless tobacco smokeless tobacco? Language Difficulties No Notes: speaks E nglish Are you deaf or do you have N Notes: St ates sometimes serious difficulty hearing? tinnitus Are you passively exposed to N smoke? Hard of hearing or deaf in one N or both ears? What is your level of caffeine Occasional Notes: 1 Large coffee consumption? daily. Have you recently traveled N abroad? Are there any guns present in N your home? What is your occupation? works at [employer] Family History Relation Problem Onset Age of Age Notes Father No current problems (No N/A (No Note s) or disability Information) Mother No current problems (No N/A (No Note s) or disability Information) Unspecified Relation Heart disease (No N/A matern al Information) grand-father Unspecified Relation Dementia (No N/A great-g randmother, Information) grandmother Functional Status Are you blind or do you Yes have difficulty seeing?? Past Encounters 03/27/2021 Mass of Axilla; Unintentional Weight Los s; Anxiety; Administration of Influenza Vaccine Dorita Jimenez PA: [address] [place] [phone], Ph. History of Present Illness ? Skin Lesion Reported By: Patient HPI: Location: abdomen. Quality: painful, sore, itchy. Onset/Timing: abrupt, growing gradually. Context: no known trigger. Aggravating Factors: shave. Associated Symptoms: no fever, no cold symptoms, no nausea, no vomiting, no diarrhea, no ur inary symptoms, no skin flakes, no scabbing, no bruising, no draining, no lesions multiplying, no lesions spreading; COVID 1.5 months ago Notes: 3 months<div>No personal hx of cancer or head/neck radiation</div><div>No famil y history of breast cancer or any other cancers</div><div>No fevers, no chills, no drainage, no erythema, no scabbing </div> Note: Concerns for today?<div>Patient appears to have an irregular pulse</div><div>
</div><div>Patient reports no swelling/redness, roughly 3/4 [address] down axilla, hard lump that can be visualized when patient raises her arm.

Flu- Due- decidednot to get one this year
TDaP- UTD
Covid- Due
Shingles-
Pneumo-

Recent labs-

Who do they live with? boyfriend
Pets? dog
Children? no
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
Hobbies? Spending time with family and friends
Travel? No
Service? No

Screening
Family Cancer History: No

Family Cardiac history: heart disease in maternal grandfather

Alcohol use:

Cervical Cancer screening: Believes had one in the past two years

Last mammogram- No

Colonoscopy- No

Sleep Apnea risk: No concerns

Depression screening: Sees a therapist PRN at least 1x per week

Sexual health:
- STI screening? No concerns
- Contraception? No

Physical activity: Walk

</div> Review of Systems: ROS as noted in the HPI Review of Systems None recorded. Physical Exam ? General Adult Exam (female) Reported By: Patient Constitutional: General Appearance: healthy- appearing, well-nourished, well-developed. Level of Dis tress: NAD. Ambulation: ambulating normally Psychiatric: Insight: good judgement. Men vinny Status: active and alert, normal mood, normal affect. Orienta tion: to time, to place, to person. Memory: recent memory normal , remote memory normal Head: Head: normocephalic, atrauma tic Eyes: Lids and Conjunctivae: non-i njected, no discharge. Pupils: PERRLA. EOM: EOMI. Sclerae: non-icte huong ENMT: Ears: no lesions on external ear, EACs clear, TMs clear, TM mobility normal. Hearing: no hearing loss. Nose: no lesions on external nose, nares patent, nasal passages clear, no nasal discharge. Lips, Teeth, and Gums: no mouth or lip ulcers, no bleeding gums, normal dentit ion. Oropharynx: moist mucous membranes, no erythema, no e xudates, tonsils not enlarged Neck: Neck: supple, trachea midlin e, no masses, FROM. Lymph Nodes: no cervical LAD, no supraclavic ular LAD, no inguinal LAD; mass in right axilla measuring 2.3 c m x 2.5 cm. Thyroid: no enlargement, non-tender, no nodules Lungs: Respiratory effort: no dyspn ea. Auscultation: breath sounds normal, good air movement, no wheezi ng, no rales/crackles, no rhonchi Cardiovascular: Heart Auscultation: RRR, nor mal S1, normal S2, no murmurs, no rubs, no gallops. Pulses including femoral / pedal: normal throughout Breast: Breast: normal appearance, n o masses, no abnormal secretions Abdomen: Bowel Sounds: normal. Inspec tion and Palpation: soft, non-distended, no tenderness , no guarding, no rebound tenderness, no masses. Liver: non-tender , no hepatomegaly. Spleen: non-tender, no splenomegaly. Hernia: non e palpable Musculoskeletal:: Motor Strength and Tone: nor mal motor strength, normal tone. Joints, Bones, and Muscles: normal movement of all extremities, no bony abnormalities, no contr actures, no malalignment, no tenderness. Extremities: no cyanosis, no edema, no varicosities, no palpable cord Neurologic: Gait and Station: normal gai t, normal station. Cranial Nerves: grossly intact. Sensation: g rossly intact Skin: Inspection and palpation: no rash, no lesions, no ulcer, no induration Back: Thoracolumbar Appearance: no rmal curvature Notes: <p>
</p>
[2021-05-01 12:45] LABS: Source Nasal/Nares
[2021-05-01 17:39] LABS: COVID-19 PCR Negative (Negative)
== END 2021-05-01 02:20 | disposition home or self-care (01) ==
LOC: LBO 02:19
PROVIDERS: PCP Nurse Practitioner Adult Health; Visit Provider Surgery
DX: Z20.822 Contact with and (suspected) exposure to COVID-19 (principal)
CPT/HCPCS: 87635

== ENCOUNTER 2021-05-03 07:42 | Day surgery (SDC) | payer MEDICAID, SELFPAY ==
[2021-05-03] VITALS (10 sets, daily range): BP systolic 104–145; BP diastolic 50–97; PULSE 50–94; RESP 13–21; TEMP 36.2–36.8; O2SAT 97–100; BMI 21.9
--- NOTE | 2021-05-03 06:36 | ROE_ITS ---
Date of service: 05/03/21 Time of Service: 09:50 Operative Note Operative Note DATE OF PROCEDURE: 05/03/21 PRE-OP DIAGNOSIS: Rt. Axillary sebaceous cyst POST-OP DIAGNOSIS: same PROCEDURE: Excision of Right axillary cyst SURGEON: Monica Mena TOWEL STRETCHER: Lisy Mueller ANESTHESIA TYPE: General:No Airway Refer to Anesthesia Record ESTIMATED BLOOD LOSS: 5 PATHOLOGY: none sent COMPLICATIONS: None Patient was transported to: same day Patient's condition: stable Indications: Ms Luevano is a pleasant 20-year-old female with a right axillary mass. On examination this is consistent with a sebaceous cyst. Her past medical history significant for some anxiety and exercise-induced asthma. We discussed trying to remove this under local anesthetic in the office but she is quite anxious and would like to be knocked out. Discussed doing a general without a breathing tube or possibly an LMA as well as local anesthetic with Exparel. If there is any concern that this is not a regular sebaceous cyst I will send it to pathology. Risks and benefits were reviewed with her and she wished to proceed Risks, benefits and complications were reviewed with her. Complications include but are not limited to bleeding, infection, recurrence, wound dehiscence and adverse reaction to the medications. Questions were entertained and answered to her satisfaction she wished to proceed. No guarantees were given or implied. Proceed with right axillary sebaceous cyst excision under general without airway or possibly LMA and local anesthetic. Findings: small 1 cm sebaceous cyst Procedure Description: After informed consent was obtained the patient was given an MKO in [facility] and brought to the OR. She was placed in a supine position on the Operating table. Monitors were applied and she was given sedation. The skin was then prepped and draped in a sterile surgical fashion. Exparel mixed 50/50 with 0.5% Bupivocaine with epinephrine was injected into the dermis and subcutaneous tissue. An incision was made over the palpable lesion with a 15 blade. Dissection was done around the lesion using both blunt dissection with a hemostat and sharp dissection with curved iris scissors. Once the lesion was completely dissected the wound was irrigated with some saline. Once the wound was clean and dry the dermis was closed with a running 4-0 Vicryl suture. Skin was cleaned and dried and skin affix was applied. The patient tolerated the procedure well and there were no immediate complications. Needle counts were correct at the end of the case.
--- NOTE | 2021-05-03 06:37 | W.PM.DSUDISC ---
Discharge Plan Disposition Patient Disposition: HOME Condition: Good Discharge Details Reason For Visit: Right axillary sebaceous cyst Attending Provider: Monica Mena Primary Care Provider: Dorita Jimenez Home Meds and New Rx's Prescriptions: Continued Midol Complete 500-60-15 mg tablet 2 tab PO Q4H PRNRF: 0 ibuprofen 200 mg tablet 600 mg PO Q6H PRNRF: 0 prenat.vits,rissa,gtd-xifg-foewc Tablet 1 tab PO DAILY RF: 0 Discharge Instructions Additional Instructions: Activity at Home after surgery: 1. As tolerated Diet, Nutrition, & wound healin. As tolerated Pain Medications: 1. Tylenol 650mg every 6 hours as needed and Ibuprofen 600 mg every 6 hours as needed. You may alternate between the 2 medications every 3 hours 2. If a narcotic has been prescribed take as directed only for breakthrough pain For Constipation: 1. Take Milk of Magnesia or MiraLax as needed for constipation Other: 1. You may shower daily. Do not scrub the incisions 2. Do not soak the incisions for 1 week 3. You may alternate ice and heat as needed for pain and swelling Wound Care: 1. Keep the incisions clean and dry Please call our office if you develop: 1. Fevers >101.5 2. Nausea or Vomiting 3. Worsening pain 4. Redness and thick discharge from the wounds If after hours please call the Hospital at and ask to speak to the on-call surgeon Referrals: Monica Mena MD [ [facility] STAFF PHYSICIAN] - 05/16/21 11:00 am Activity:: Activity as Tolerated Diet:: As Tolerated Discharge Orders Discharge Orders: Discharge Order (Routine); Ordered 05/03/21 Ordered By: Monica Mena
[2021-05-03] MEDS: Lactated Ringers 1,000 ML 80 ML IV (08:38)
--- NOTE | 2021-05-03 08:56 | W.ANESPRE ---
General Info Date of Service Date Performed: 05/03/21 Height: 5 ft 6 in Weight: 61.6 kg Body Mass Index (BMI): 21.9 Surgical Procedure: Operation Date: 05/03/21 09:40 Proposed Procedures Side Surgeon p Excision Of Right Axillary Sebaceous Cyst Right Monica Mena MD Meds Allergies and Home Medications Allergies Allergy/AdvReac Type Severity Reaction Status Date / Time No Known Drug Allergies Allergy Verified 05/02/21 10:19 Home Medication Medication Instructions Recorded taxnrzytebbjf-zykxeqmf-rosxvtxchs 2 tab PO Q4H PRN 03/26/19 500 mg-60 mg-15 mg tablet ibuprofen 200 mg tablet 600 mg PO Q6H PRN tab 03/26/19 prenat.vits,rissa,hds-jqxt-snqle 1 tab PO DAILY 04/07/21 Current Visit Medications: Current Medications Generic Name Dose Route Start Last Admin Trade Name Freq PRN Reason Stop Dose Admin Ringer's Solution 1,000 mls @ 80 mls/hr 05/03/21 06:00 05/03/21 08:38 IV 06/01/21 23:59 80 mls/hr INFUSION NOVA Administration Cefazolin Sodium/Dextrose 2 gm in 50 mls @ 100 mls/hr 05/03/21 06:00 Ancef Duplex IVPB 06/01/21 23:59 PREOP NOVA Ondansetron HCl 4 mg/ Sodium 52 mls @ 200 mls/hr 05/03/21 06:38 Chloride IVPB Q6H PRN PRN IV Miscellaneous Supplies 1 each 05/03/21 06:00 Iv Access IV 06/01/21 23:59 DIRECTED NOVA Ibuprofen 600 mg 05/03/21 06:38 Ibuprofen 600 Mg Tab PO Q6H PRN PRN Pain Sodium Chloride 0 ml 05/03/21 06:00 Normal Saline Flush 10 Ml Syr IV 06/01/21 23:59 PRN PRN Sodium Chloride 0 ml 05/03/21 06:00 Normal Saline 10 Ml Vial IJ 06/01/21 23:59 DIRECTED PRN Sterile Water 0 ml 05/03/21 06:00 Water,Injection,Sterile 10 Ml Vial IJ 06/01/21 23:59 DIRECTED PRN PFSH Active Problems Active Problems: Problem Status Onset Code Urinary frequency R35.0 Axillary mass R22.30 Unintentional weight loss R63.4 Sebaceous cyst of axilla L72.3 Medical History Active Problem List (Updated 05/03/21 @ 08:06 by Barb Gan RN) Urinary frequency (Acute) Axillary mass (Acute) Unintentional weight loss (Acute) Sebaceous cyst of axilla (Acute) Medical History (Updated 05/03/21 @ 08:06 by Barb Gan RN) Anxiety Asthma Toddler History of chlamydia infection History of COVID-19 covid positive test date in february 2021 Interstitial cystitis (chronic) without hematuria Surgical History Surgical History History of wisdom tooth extraction (~03/03/17) Tobacco Smoking/Tobacco Use Status: Never Alcohol Alcohol Intake: current Alcohol intake frequency: a few times a month Alcohol type: other Substance Use Substance use: Occasionally Substance use type: marijuana Vital Signs and Lab Results Vital Signs Most Recent Vital Signs in EMR: Most Recent Vital Signs Temp Pulse Resp BP Pulse Ox 36.8 C 94 H 16 145/97 H 100 05/03/21 08:09 05/03/21 08:09 05/03/21 08:09 05/03/21 08:09 05/03/21 08:09 Point of Care Results Point of Care Results: POC- Test(urine) Negative 05/03/21 08:09 Lab Results Blood Type / Crossmatch: No Data to Display Complete Blood Count: No Data to Display Complete Metabolic Panel: No Data to Display Liver Function Panel: No Data to Display Coagulation Panel: No Data to Display Cardiac Panel: No Data to Display Arterial Blood Gas: No Data to Display Venous Blood Gas: No Data to Display Pancreas Panel: No Data to Display Thyroid Panel: No Data to Display Infectious Disease: Coronavirus (COVID-19)(PCR) Negative (Negative) 05/01/21 11:05 05/01/21 Coronavirus 2019 Source Nasal/Nares 05/01/21 11:05 05/01/21 Blood Cultures: No Data to Display Toxicology Panel: No Data to Display Panel: No Data to Display Anesthesia Assessment and Plan Anesthesia History Personal History: No History of Anesthesia Complications Family History: No Family History of Anesthesia Complications Exercise Tolerance Exercise Tolerance: Metabolic Equivalents>4 Cardiac & Pulmonary Exam Cardiac Exam: Normal S1/S2 Heart Sounds Pulmonary Exam: Clear Bilateral Breath Sounds Implantable Cardiac Device Does patient have a Pacemaker or an ICD?: No Airway Exam Known Difficult Airway: No Mallampati Class: 2 Mouth Opening: Normal (> 3cm) Thyromental Distance: Greater than 3 cm Neck Range of Motion: Full ROM Neck Circumference: Normal Teeth Condition: Normal Dentition ASA Classification ASA Score: ASA 2 Emergency Case?: No NPO Status NPO Status: NPO Clears >2 hours, Solids >8 hours Status Status: Negative HCG Anesthesia Plan Resuscitation Status: Full Code Anesthesia Technique: General Anesthesia Airway Planned: Natural Airway Monitors Used: Standard Monitors
[2021-05-03] MEDS: ceFAZolin 2 GM/50 ML BAG IVPB (09:32)
[2021-05-03] MEDS: Bupivacaine LIPOSOME/PF 133 MG/10 ML VIAL IJ (09:49)
--- NOTE | 2021-05-03 13:16 | W.ANESPOSTOP ---
Postoperative Evaluation Date, Time and Location Date Performed: 05/03/21 Time Performed: 11:37 Patient Location: Day Surgery Unit Vital Signs Most Recent Imported Vital Signs: Most Recent Vital Signs Temp Pulse Resp BP Pulse Ox 36.2 C L 53 L 16 128/76 100 05/03/21 11:37 05/03/21 11:37 05/03/21 11:37 05/03/21 11:37 05/03/21 11:37 Pain Score Most Recent Pain Score: Most Recent Pain Score Pain Level 4 05/03/21 11:37 Assessment Mental Status: Awake (Alert & Oriented to Patient Baseline) Airway and Respiratory Function: Patent airway with normal (patient baseline) respiratory exam Cardiovascular Function: Hemodynamically Stable Hydration Status: Adequately Hydrated Nausea & Vomiting: No Nausea or Vomiting Pain: Pain is tolerable per patient Peripheral Nerve Block: Patient did not receive a nerve block
== END 2021-05-03 07:43 | disposition home or self-care (01) ==
PROVIDERS: PCP Emergency Medicine; Visit Provider Surgery
PROC: (CPT 11401; principal; 2021-05-03 09:30)
DX: L72.3 Sebaceous cyst (principal); J45.990 Exercise induced bronchospasm
CPT/HCPCS: 11401; 81025; J0690; J2001; J2704